=== PATIENT | male | born 1970 | race Caucasian/White ===

== ENCOUNTER 2016-07-10 12:04 | Emergency (ER) | payer SELFPAY ==
[~2016-07-10] VITALS: Ht 167.6 cm; Wt 75.7 kg
[2016-07-10] MEDS ORDERED: LEVAQUIN500 MG PO (13:06)
[2016-07-10] MEDS ORDERED: MOBIC15 MG PO (13:07)
[2016-07-10 13:23] VITALS: BP 154/90
== END 2016-07-10 13:23 | disposition home or self-care (01) ==
LOC: EME 12:04
DX: S91.332A Puncture wound without foreign body, left foot, initial encounter (principal); L08.9 Local infection of the skin and subcutaneous tissue, unspecified; W45.0XXA Nail entering through skin, initial encounter; F17.200 Nicotine dependence, unspecified, uncomplicated
CPT/HCPCS: 73630; 99281; 99283